=== PATIENT | female | born 2000 | race African-American/Black ===

== ENCOUNTER 2022-06-12 10:48 | Emergency (ER) | payer MEDICAID ==
[2022-06-12 13:13] LABS: Bilirubin Neg (Negative); Blood, Urine 25 (Negative); Clarity Clear (Clear); Glucose, Urine (Dipstick) Normal (Negative); Ketone, Urine Negative (Negative); Leukocyte Negative (Negative); Nitrite Negative (Negative); Protein, Urine (Dipstick) Negative (Neg-Trace); Urobilinogen Normal mg/dL (Less than 2)
[2022-06-12 13:16] LABS: Pregnancy Test - Urine (BHCG) Negative (Negative); Pregu Control Background? CLEAR/WHITE (CLR/WHITE); Pregu Control Bar Appear? YES (CONTROL BAR)
[2022-06-12 13:26] LABS: Squamous Epithelial 0-3 HPF (0-3)
[2022-06-12 13:27] LABS: Bacteria/HPF 2+ HPF (None Seen); RBC/HPF 0-3 HPF (0-3); WBC/HPF 0-3 HPF (0-3)
[2022-06-12 13:29] LABS: Mucous/LPF Rare LPF (<2+)
== END 2022-06-12 13:40 | disposition home or self-care (01) ==
LOC: CSHERS 10:48
DX: M54.50 Low back pain, unspecified (principal); R53.81 Other malaise; Z20.822 Contact with and (suspected) exposure to COVID-19
CPT/HCPCS: 81003; 81015; 81025

== ENCOUNTER 2024-09-07 09:26 | Emergency (ER) | payer OTHER ==
[2024-09-07 10:11] LABS: Bilirubin Neg (Negative); Blood, Urine Negative (Negative); Clarity Clear (Clear); Glucose, Urine (Dipstick) Normal (Negative); Ketone, Urine Negative (Negative); Leukocyte Negative (Negative); Nitrite Negative (Negative); Protein, Urine (Dipstick) Negative (Neg-Trace)
[2024-09-07 10:13] LABS: Pregnancy Test - Urine (BHCG) Negative (Negative); Pregu Control Background? CLEAR/WHITE (CLR/WHITE); Pregu Control Bar Appear? YES (CONTROL BAR)
[2024-09-07 10:18] LABS: Bacteria/HPF 1+ HPF (None Seen); CAUTI Indications for Culture Pelvic or flank pain; RBC/HPF 0-3 HPF (0-3); Squamous Epithelial 0-3 HPF (0-3); WBC/HPF 0-3 HPF (0-3)
[2024-09-07 10:19] LABS: Urine Culture Reflex No No
[2024-09-07] MEDS ORDERED: Ibuprofen 200 MG TAB ONE (10:40)
[2024-09-07] MEDS ORDERED: Acetaminophen 500 MG TAB ONE (10:41)
== END 2024-09-07 11:50 | disposition home or self-care (01) ==
LOC: CSHERS 09:26
DX: R10.31 Right lower quadrant pain (principal)
CPT/HCPCS: 74176; 81001; 81025